=== PATIENT | female | born 1960 | race Caucasian/White ===

== ENCOUNTER 2024-05-21 07:22 | Outpatient (RCR) | payer OTHER, SELFPAY ==
[2024-05-21 13:30] VITALS: BP 112/64; PULSE 82; O2SAT 97
[2024-05-21] MEDS: ROMOSOZUMAB-AQQG 210 MG/2.34 ML SYRINGE SQ (14:10)
--- NOTE | 2024-05-21 14:33 | PC.NURSE ---
1425 Educated on need to be taking calcium with vitamin, provided with pamphlet on evenity, instructed patient to check with prescribing practitioner for calcium requirements. tolerated injection, no s/s of reaction site clear. released ambulatory.
== END 2024-05-21 23:59 | disposition home or self-care (01) ==
LOC: INF 07:22
PROVIDERS: Visit Provider Nurse Practitioner Family
DX: M80.08XA Age-related osteoporosis with current pathological fracture, vertebra(e), initial encounter for fracture (principal)
CPT/HCPCS: 96372; J3111

== ENCOUNTER 2024-06-25 07:35 | Outpatient (RCR) | payer OTHER, SELFPAY ==
[2024-06-25] MEDS: ROMOSOZUMAB-AQQG 210 MG/2.34 ML SYRINGE SQ (13:37)
[2024-06-25 14:00] VITALS: BP 120/75; PULSE 68; TEMP 36.4; O2SAT 93
== END 2024-07-21 23:59 | disposition home or self-care (01) ==
LOC: INF 07:35
PROVIDERS: Visit Provider Nurse Practitioner Family
DX: M80.08XA Age-related osteoporosis with current pathological fracture, vertebra(e), initial encounter for fracture (principal)
CPT/HCPCS: 96372; J3111

== ENCOUNTER 2024-07-28 07:41 | Outpatient (RCR) | payer OTHER, SELFPAY ==
[2024-07-28 13:00] VITALS: BP 89/57; PULSE 68; TEMP 36.3; O2SAT 95
[2024-07-28] MEDS: ROMOSOZUMAB-AQQG 210 MG/2.34 ML SYRINGE SQ (13:13)
--- NOTE | 2024-07-28 13:17 | PC.NURSE ---
1300: Pt. to [facility] amb. using walker, accompanied by . Seated in recliner. Audible exp. wheezes noted, relays slight dyspnea with exertion. Stated she was hopitalized last week for a day for breathing issues. VSS. Given water and juice. 1313: Medicated with Evenity as directed, see documentation. Pt. tolerated without c/o. No bleeding to injections sites x's 2. 1320: Pt. without c/o. D/c'd amb. to home.
== END 2024-08-21 23:59 | disposition home or self-care (01) ==
LOC: INF 07:41
PROVIDERS: Visit Provider Nurse Practitioner Family
DX: M80.08XA Age-related osteoporosis with current pathological fracture, vertebra(e), initial encounter for fracture (principal)
CPT/HCPCS: 96372; J3111

== ENCOUNTER 2024-08-27 07:43 | Outpatient (RCR) | payer OTHER, SELFPAY ==
[2024-08-27 13:10] VITALS: BP 146/83; PULSE 86; TEMP 36.8; O2SAT 96
[2024-08-27] MEDS: ROMOSOZUMAB-AQQG 210 MG/2.34 ML SYRINGE SQ (13:32)
--- NOTE | 2024-08-27 13:35 | PC.NURSE ---
1332: Medicated with Evenity SQ x 2 injections to right upper arm. Tolerated with minimal c/o discomfort. No bleeding to sites. 1337: Pt. d/c'd amb. to home with .
== END 2024-09-11 08:52 | disposition home or self-care (01) ==
LOC: INF 07:43
PROVIDERS: Visit Provider Nurse Practitioner Family
DX: M80.08XA Age-related osteoporosis with current pathological fracture, vertebra(e), initial encounter for fracture (principal)
CPT/HCPCS: 96372; J3111

== ENCOUNTER 2024-09-29 07:33 | Outpatient (RCR) | payer OTHER, SELFPAY ==
[2024-09-29 12:55] VITALS: BP 106/64; PULSE 98; TEMP 36.4; O2SAT 98
[2024-09-29] MEDS: ROMOSOZUMAB-AQQG 210 MG/2.34 ML SYRINGE SQ (13:24)
== END 2024-09-29 13:54 | disposition home or self-care (01) ==
LOC: INF 07:33
PROVIDERS: PCP Nurse Practitioner Family
DX: M80.08XA Age-related osteoporosis with current pathological fracture, vertebra(e), initial encounter for fracture (principal)
CPT/HCPCS: 96372; J3111

== ENCOUNTER 2024-12-17 07:38 | Outpatient (RCR) | payer OTHER, SELFPAY ==
[2024-12-17 14:00] VITALS: BP 123/72; PULSE 87; TEMP 36.7; O2SAT 98
[2024-12-17] MEDS: ROMOSOZUMAB-AQQG 210 MG/2.34 ML SYRINGE SQ (14:20)
== END 2024-12-18 07:48 | disposition home or self-care (01) ==
LOC: INF 07:38
PROVIDERS: PCP Nurse Practitioner Family; Visit Provider Orthopaedic Surgery
DX: M80.08XA Age-related osteoporosis with current pathological fracture, vertebra(e), initial encounter for fracture (principal)
CPT/HCPCS: 96372; J3111

== ENCOUNTER 2025-01-26 13:21 | Outpatient (RCR) | payer OTHER, SELFPAY ==
[2025-01-26 14:06] VITALS: BP 111/71; PULSE 85; TEMP 36.4; O2SAT 96
[2025-01-26] MEDS: ROMOSOZUMAB-AQQG 210 MG/2.34 ML SYRINGE SQ (14:26)
== END 2025-01-27 08:46 | disposition home or self-care (01) ==
LOC: INF 13:21
PROVIDERS: PCP Nurse Practitioner Family; Visit Provider Orthopaedic Surgery
DX: M80.08XA Age-related osteoporosis with current pathological fracture, vertebra(e), initial encounter for fracture (principal)
CPT/HCPCS: 96372; J3111

== ENCOUNTER 2025-02-25 07:39 | Outpatient (RCR) | payer OTHER, SELFPAY ==
[2025-02-25 13:59] VITALS: BP 110/72; PULSE 88; TEMP 36.3; O2SAT 98
[2025-02-25] MEDS: ROMOSOZUMAB-AQQG 210 MG/2.34 ML SYRINGE SQ (14:08)
== END 2025-02-27 09:43 | disposition home or self-care (01) ==
LOC: INF 07:39
PROVIDERS: PCP Nurse Practitioner Family; Visit Provider Orthopaedic Surgery
DX: M80.08XA Age-related osteoporosis with current pathological fracture, vertebra(e), initial encounter for fracture (principal)
CPT/HCPCS: 96372; J3111

== ENCOUNTER 2025-03-18 13:56 | Outpatient (RCR) | payer OTHER, SELFPAY | END 2025-03-19 07:42 | disposition home or self-care (01) | LOC: OT 13:56 | PROVIDERS: PCP Nurse Practitioner Family; Visit Provider Orthopaedic Surgery | DX: I89.0 Lymphedema, not elsewhere classified (principal) | CPT/HCPCS: 97167 ==

== ENCOUNTER 2025-03-26 07:31 | Outpatient (RCR) | payer OTHER, SELFPAY ==
[2025-03-26 14:00] VITALS: BP 121/64; PULSE 89; TEMP 36.6; O2SAT 98
[2025-03-26] MEDS: ROMOSOZUMAB-AQQG 210 MG/2.34 ML SYRINGE SQ (14:23)
== END 2025-03-26 14:41 | disposition home or self-care (01) ==
LOC: INF 07:31
PROVIDERS: PCP Nurse Practitioner Family; Visit Provider Orthopaedic Surgery
DX: M80.08XA Age-related osteoporosis with current pathological fracture, vertebra(e), initial encounter for fracture (principal)
CPT/HCPCS: 96372; J3111

== ENCOUNTER 2025-04-27 07:35 | Outpatient (RCR) | payer OTHER, SELFPAY ==
[2025-04-27 13:53] VITALS: TEMP 36.2
[2025-04-27] MEDS: ROMOSOZUMAB-AQQG 210 MG/2.34 ML SYRINGE SQ (14:03)
== END 2025-05-21 23:59 | disposition home or self-care (01) ==
LOC: INF 07:35
PROVIDERS: PCP Nurse Practitioner Family; Visit Provider Orthopaedic Surgery
DX: M80.08XA Age-related osteoporosis with current pathological fracture, vertebra(e), initial encounter for fracture (principal)
CPT/HCPCS: 96372; J3111

== ENCOUNTER 2025-06-01 07:40 | Outpatient (RCR) | payer OTHER, SELFPAY ==
[2025-06-01 13:59] VITALS: BP 161/69; PULSE 98; TEMP 36.6; O2SAT 95
[2025-06-01] MEDS: ROMOSOZUMAB-AQQG 210 MG/2.34 ML SYRINGE SQ (14:06)
== END 2025-06-21 23:59 | disposition home or self-care (01) ==
LOC: INF 07:40
PROVIDERS: PCP Nurse Practitioner Family; Visit Provider Orthopaedic Surgery
DX: M80.08XA Age-related osteoporosis with current pathological fracture, vertebra(e), initial encounter for fracture (principal)
CPT/HCPCS: 96372; J3111

== ENCOUNTER 2025-07-01 13:21 | Outpatient (RCR) | payer OTHER, SELFPAY ==
[2025-07-01 13:30] VITALS: BP 110/72; PULSE 87; TEMP 36.4; O2SAT 96
[2025-07-01] MEDS: ROMOSOZUMAB-AQQG 210 MG/2.34 ML SYRINGE SQ (13:40)
== END 2025-07-21 23:59 | disposition home or self-care (01) ==
LOC: INF 13:21
PROVIDERS: PCP Nurse Practitioner Family; Visit Provider Orthopaedic Surgery
DX: M80.08XA Age-related osteoporosis with current pathological fracture, vertebra(e), initial encounter for fracture (principal)
CPT/HCPCS: 96372; J3111